=== PATIENT | male | born 1960 | race Caucasian/White ===

== ENCOUNTER 2016-09-21 14:32 | Emergency (ER) | payer OTHER ==
[2016-09-21] MEDS ORDERED: Bacitracin/Neomycin/Polymyxin B Oint 0.9 GM U/D Packet TOP ONE (14:46)
--- NOTE | 2016-09-21 14:46 | EDM.PDOC ---
ED HPI GENERAL MEDICAL PROBLEM - General Chief Complaint: Laceration Stated Complaint: head laceration Time Seen by Provider: 09/21/16 14:40 Source of Information: Reports: Patient, Old Records ([facility] EMR. No paper hospital chart available.) History Limitations: Reports: No Limitations - History of Present Illness INITIAL COMMENTS - FREE TEXT/NARRATIVE: Patient drove himself to the emergency room via private automobile for evaluation of a Worker's Compensation injury, which occurred at about 14:25 hours. He accidentally cut his head on a metal hydraulic line underneath a trailer with patient rating his discomfort as burning 3/10 pain. No history of foreign body, loss of consciousness, change in mental status, headaches, nausea , visual changes, neck/back pain, paresthesias, neurological deficits, or other complaints or injuries. He does not know when he last had a tetanus booster. Patient did apparently have nonspecific left-sided 3/10 chest pressure about one week ago lasting for about 10 minutes with the patient telling his about this episode. 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 The patient denies any heart flutter, dizziness, orthostasis, orthopnea, diaphoresis, paresthesias, recent decreased exercise tolerance, or any other anginal-type symptoms. No recent history of abdominal pain, heartburn, diarrhea, melena, gross hematochezia, or any food intolerance, including fatty foods, etc.. The patient also denies any recent fever, cough, wheezing, dyspnea, etc.. Onset: Today, Sudden Onset Date: 09/21/16 Onset Time: 14:25 Duration: Constant Location: Reports: Head. Denies: Face, Neck, Chest, Abdomen, Back, Pelvis, Upper Extremity, Left, Upper Extremity, Right, Lower Extremity, Left, Lower Extremity, Right Quality: Reports: Burning, Same as Previous Episode Severity: Mild Improves with: Reports: None Worsens with: Reports: None Context: Reports: Trauma (As above) Associated Symptoms: Denies: Confusion, Chest Pain, Cough, Diaphoresis, Fever/ Chills, Loss of Appetite, Malaise, Nausea/Vomiting, Seizure, Shortness of Breath , Syncope, Weakness Treatments PHYSICIAN RELATIONS SPECIALIST: Reports: Other (see below) (None) Left Head Pain Score (Numeric/FACES): 3 - Related Data Allergies Allergy/AdvReac Type Severity Reaction Status Date / Time No Known Allergies Allergy Verified 09/21/16 14:41 Home Meds: Home Meds . [No Known Home Meds] 09/21/16 [History] Past Medical History HEENT History: Reports: Impaired Vision, Otitis Media, Other (See Below). Denies: Allergic Rhinitis, Cataract, Glaucoma, Hard of Hearing, Macular Degeneration, Retinal Detachment Other HEENT History: Wears glasses, history of recurrent otitis media as a child Cardiovascular History: Reports: None, Other (See Below). Denies: Afib, Aneurysm, Arrhythmia, Blood Clots/VTE/DVT, CAD, Heart Failure, Heart Murmur, High Cholesterol, Hypertension, [place], Syncope Other Cardiovascular History: Patient does not know his cholesterol status Respiratory History: Reports: None. Denies: Asthma, COPD, Intubation, Previous , PE, Pneumothorax, Sleep Apnea, TB Gastrointestinal History: Reports: Chronic Diarrhea, GERD. Denies: Celiac Disease, Cholelithiasis, Chronic Constipation, Colon Polyp, Diverticulosis, Gastritis, GI Bleed, Hepatitis, Hiatal Hernia, Inflammatory Bowel Disease, Irritable Bowel Syndrome, Jaundice, Pancreatitis, PUD Genitourinary History: Reports: None. Denies: BPH, Chronic Renal Insuffiency, Renal Calculus, Retention, Urinary, STD, Urinary Incontinence, UTI, Recurrent Musculoskeletal History: Reports: Arthritis, Back Pain, Chronic, Neck Pain, Chronic, Osteoarthritis. Denies: Amputation, Fracture, Gout, RA, SLE Neurological History: Reports: Headaches, Chronic. Denies: Alzheimers Disease, Cerebral Aneurysms, Concussion, CVA, Head Trauma, Migraines, MS, Parkinson's, Seizure, TIA Psychiatric History: Reports: Anxiety, Depression, Other (See Below). Denies: Abuse, Victim of, ADD, ADHD, Addiction, Psych Hospitalization(s), Psychosis, PTSD, Suicide Attempt, Suicidal Ideation Other Psychiatric History: Anxiety depression disorder with no history of previous medical therapy or treatment Endocrine/Metabolic History: Reports: None. Denies: Diabetes, Type I, Diabetes , Type II, Hypothyroidism, IDDM Hematologic History: Reports: None. Denies: Anemia, Blood Transfusion(s), Iron Deficiency Immunologic History: Reports: None. Denies: AIDS, HIV, SLE Oncologic (Cancer) History: Reports: None. Denies: Basal Cell Carcinoma, Hodgkin's Lymphoma, Leukemia, Lymphoma, Malignant Melanoma, Non-Hodgkin's Lymphoma, Squamous Cell Carcinoma Dermatologic History: Reports: None. Denies: Eczema, Psoriasis - Infectious Disease History Infectious Disease History: Reports: Chicken Pox. Denies: C-Difficile, Measles , Meningitis, Mononucleosis, MRSA, Mumps, Pertussis (Whooping Cough), Rheumatic Fever, Rubella, Scarlet Fever, Shingles, TB, VRE - Past Surgical History Head Surgeries/Procedures: Reports: None HEENT Surgical History: Reports: Oral Surgery, Other (See Below). Denies: Adenoidectomy, Cataract Surgery, Eye Surgery, Laser Surgery, LASIK, Myringotomy w Tube(s), Naso-Sinus Surgery, Tonsillectomy Other HEENT Surgeries/Procedures: Teeth extraction, [place] teeth extraction x2 of the lower dentition at age 19 Cardiovascular Surgical History: Reports: None. Denies: Varicose, Vascular Surgery Respiratory Surgical History: Reports: None. Denies: Thoracentesis GI Surgical History: Denies: Appendectomy, Cholecystectomy, Colonoscopy, EGD, Hernia, Abdominal, Hernia, Inguinal, Hernia Repair/Other, Polypectomy Male Surgical History: Reports: Vasectomy, Other (See Below). Denies: Circumcision, TURP-Transurethral Resection of Prostate Other Male Surgeries/Procedures: vastectomy in September 1997 Endocrine Surgical History: Reports: None. Denies: Thyroid Biopsy Neurological Surgical History: Reports: None. Denies: C-Spine, Discectomy, Laminectomy, Lumbar Spine, Spinal Fusion, Vertebroplasty Musculoskeletal Surgical History: Reports: None. Denies: Carpal Tunnel, Ganglion Cyst, Joint Replacement, ORIF, Shoulder Surgery Oncologic Surgical History: Reports: None Dermatological Surgical History: Reports: None - Past Imaging History Past Imaging History: Reports: None. Denies: CAT Scan, Stress Testing Social & Family History - Tobacco Use Smoking Status *Q: Current Every Day Smoker Tobacco Use Within Last Twelve Months: Snuff/Dip Years of Tobacco use: 41 (Started at age 14 ) Packs/Tins Daily: 0.4 (One can every 3 days) Smoking Cessation Information Provided To Patient: Yes Second Hand Smoke Exposure: Yes Source of Second Hand Smoke Exposure: smokes Second Hand Smoke Education Provided: Yes - Caffeine Use Caffeine Use: Reports: Coffee (24 cups per day), Tea (1 glass 2 times per week) . Denies: Energy Drinks, Soda - Alcohol Use Alcohol Use History: Yes Days Per Week of Alcohol Use: 7 (No previous DWIs, problems with alcohol abuse, etc.) Number of Drinks Per Day: 6 (Usually beer) Total Drinks Per Week: 42 Alcohol Use in Last Twelve Months: Yes Alcohol Use Frequency: Daily - Recreational Drug Use Recreational Drug Use: No Drug Use in Last 12 Months: No Recreational Drug Type: Denies: Amphetamines (Speed), Cocaine, Heroin, Inhalants (Glues, Solvents, Aerosols), LSD (Acid), Marijuana/Hashish, Methamphetamine - Living Situation & Occupation Living situation: Reports: (1993, 3 children), with Family (, 2 children) Occupation: Employed (local delivery driver) ED ROS GENERAL - Review of Systems Review Of Systems: See Below Constitutional: Reports: No Symptoms. Denies: Fever, Chills, Weakness, Fatigue , Night Sweats, Diaphoresis HEENT: Reports: Glasses, Other (Head laceration). Denies: Dental Pain, Ear Pain , Eye Discharge, Eye Pain, Hearing Loss, Rhinitis, Throat Pain, Vertigo, Vision Change Respiratory: Reports: No Symptoms. Denies: Shortness of Breath, Pleuritic Chest Pain, Cough Cardiovascular: Reports: No Symptoms. Denies: Chest Pain, Blood Pressure Problem, Dyspnea on Exertion, Edema, Lightheadedness, Orthopnea, Palpitations, Syncope Endocrine: Reports: No Symptoms. Denies: Fatigue GI/Abdominal: Reports: No Symptoms. Denies: Abdominal Pain, Anorexia, Black Stool, Bloody Stool, Constipation, Diarrhea, Decreased Appetite, Distension, Hematochezia, Melena, Nausea, Stool Incontinence, Vomiting : Reports: No Symptoms. Denies: Discharge, Dysuria, Flank Pain, Frequency, Hematuria, Incontinence, Pain, Urgency, Urinary Retention Musculoskeletal: Reports: No Symptoms. Denies: Neck Pain, Shoulder Pain, Arm Pain, Back Pain, Leg Pain, Joint Pain Skin: Reports: Wound (As above). Denies: Diaphoresis Neurological: Reports: No Symptoms. Denies: Confusion, Dizziness, Headache, Numbness, Paresthesia, Seizure, Syncope, Tingling, Weakness Psychiatric: Reports: No Symptoms. Denies: Agitation, Anxiety, Confusion, Depression, Hallucinations Hematologic/Lymphatic: Reports: No Symptoms Immunologic: Reports: No Symptoms ED EXAM, SKIN/RASH Exam: See Below Exam Limited By: No Limitations General Appearance: Alert, WD/WN, No Apparent Distress, Anxious (Mild to moderate) Eye Exam: Bilateral Eye: Normal Fundi, Normal Inspection (No nystagmus), PERRL Ears: Normal External Exam, Normal Canal, Hearing Grossly Normal, Normal TMs Nose: Normal Inspection, Normal Mucosa, No Blood Throat/Mouth: Normal Inspection, Normal Lips, Normal Teeth (Occasional missing teeth), Normal Gums, Normal Oropharynx, Normal Voice, No Airway Compromise. No : Dysphagia, Inflammation Head: Normocephalic, Other (4 cm in length superficial laceration over the superior left occipital region with no foreign body, crepitation, deformity, or evidence of skull fracture). No: Facial Swelling, Facial Tenderness, Sinus Tenderness Neck: Normal Inspection, Supple, Non-Tender, Full Range of Motion. No: Lymphadenopathy (L), Lymphadenopathy (R), Thyromegaly Respiratory/Chest: No Respiratory Distress, Lungs Clear, Normal Breath Sounds, No Accessory Muscle Use, Chest Non-Tender. No: Pleural Rub, Retractions Cardiovascular: Normal Peripheral Pulses, Regular Rate, Rhythm, No Edema, No Gallop, No JVD, No Murmur, No Rub. No: Gallop/S3, Gallop/S4, Friction Rub Peripheral Pulses: 4+: Radial (L), Radial (R) GI/Abdominal: Normal Bowel Sounds, Soft, Non-Tender, No Organomegaly, No Distention, No Abnormal Bruit, No Mass, Pelvis Stable. No: Guarding (Male) Exam: Deferred Rectal (Males) Exam: Deferred Back Exam: Normal Inspection, Full Range of Motion. No: Muscle Spasm Extremities: Normal Inspection, Normal Range of Motion, Non-Tender, No Pedal Edema, Normal Capillary Refill Neurological: Alert, Oriented, CN II-XII Intact, Normal Cognition, Normal Gait, No Motor/Sensory Deficits Psychiatric: Anxious (Mild to moderate). No: Depressed Mood Skin: Warm, Dry, Normal Color, Wound/Incision (Head laceration as above). No: Diaphoretic, Ecchymosis, Pallor, Petechiae Location, Skin: Head Characteristics: Linear Associated features: Tenderness (Mild) Lymphatic: No Adenopathy ED SKIN PROCEDURES - Laceration/Wound Repair Left Upper Posterior Head Lac/wound length in cm: 4.0 Appearance: Superficial, Linear, Clean Distal NVT: neuro & vascular intact, no tendon injury Local anesthesia - Lidocaine (Xylocaine): 1% plain Local anesthetic volume: other (6 cc) Skin prep: providone-iodine (betadine) Saline irrigation (cc's): 0 Exploration/Debridement/Repair: wound explored, in a bloodless field, explored to base, no foreign material found Closed with: jermaine # of sutures: 8 Suture type: interrupted, simple Drain placement: No Sterile dressing applied: nurse Tetanus status addressed: Yes Complications: No Course - Vital Signs Last Recorded V/S: Last Vital Signs Temp 36.9 C 09/21/16 15:12 Pulse 84 09/21/16 15:12 Resp 18 09/21/16 15:12 BP 150/82 H 09/21/16 15:12 Pulse Ox 97 09/21/16 15:12 Vital Signs - 24 hr 09/21/16 15:12 Temperature [ 36.9 C Temporal] Pulse, 84 Peripheral [ Right Pulse Oximetry] Respiratory 18 Rate Blood Pressure 150/82 H [Left Upper Arm ] O2 Sat by Pulse 97 Oximetry - Orders/Labs/Meds Orders: Active Orders 24 hr Category Date Time Status Vaccines to be Administered [RC] PER UNIT ROUTINE Care 09/21/16 14:47 Active Obtain Past Medical Record [OM.PC] Routine Oth 09/21/16 14:46 Active Labs: None Meds: Medications Discontinued Medications Generic Name Dose Route Start Last Admin Trade Name Freq PRN Reason Stop Dose Admin Diphtheria/Tetanus/Acell Pertussis 0.5 ml 09/21/16 14:47 09/21/16 15:17 Adacel IM 09/21/16 14:48 0.5 ml .ONCE ONE Administration Lidocaine HCl 5 ml 09/21/16 14:46 09/21/16 14:51 Xylocaine-Mpf 1% INJECT 09/21/16 14:47 5 ml ONETIME ONE Administration Lidocaine HCl 5 ml 09/21/16 14:47 09/21/16 14:51 Xylocaine-Mpf 1% INJECT 09/21/16 14:48 5 ml ONETIME ONE Administration Neomycin/Polymyxin/Bacitracin 1 each 09/21/16 14:46 09/21/16 14:51 Triple Antibiotic Oint TOP 09/21/16 14:47 1 each ONETIME ONE Administration - Radiology Interpretation Free Text/Narrative:: None Departure - Departure Time of Disposition: 15:45 Disposition: Home, Self-Care 01 Condition: good Clinical Impression: Laceration, Tobacco abuse counseling, Peptic reflux disease, Mixed anxiety depressive disorder Chest pain Qualifiers: Chest pain type: unspecified Qualified Code(s): R07.9 - Chest pain, unspecified - Discharge Information Instructions: Laceration Care, Adult, [id number], Head Injury, Adult, Easy-to -Read Referrals: Eugene Vazquez PA-C [Primary Care Provider] - Forms: ED Department Discharge Additional Instructions: 1. Follow up with your regular provider in 10-14 days as needed, if symptoms persist. 2. Tylenol 650 mg by mouth every 4 hours and/or OTC ibuprofen 2-3 tabs by mouth every 6 hours with food as directed./needed. 3. Antibacterial soap wash/soak with subsequent antibacterial dressing such as Neosporin, etc. as directed 2 times per day until the wound or laceration site completely heals. Keep the area clean and dry with activity restrictions as discussed. 4. Stop all tobacco use ADRIANNA as directed/per provided information and consider contacting Quit [employer]ne, etc.. 5. Head precautions as directed-see form. 6. Continue to observe your blood pressure closely through your regular provider 7. Discuss with your regular provider ADRIANNA your recent episode of chest pain with consideration of cardiac workup and screening colonoscopy thereafter with possible additional EGD once your cardiac status has been determined - Problem List & Annotations (1) Laceration SNOMED Code(s): 538172550 Code(s): GLP4956 - Status: Acute Priority: High Onset Date: 09/21/16 Annotation/Comment:: Excellent results with laceration repair as above. DTaP given. Wound care and activity restrictions discussed. The patient does not wish to have a work excuse and wants to go back to work today. Workmen's Compensation forms were completed (2) Tobacco abuse counseling SNOMED Code(s): 508986461, 707051300, 777712914 Code(s): Z71.6 - TOBACCO ABUSE COUNSELING Status: Chronic Priority: Medium Annotation/Comment:: Tobacco cessation strongly encouraged with information provided, and the patient counseled on the use of Nicorette gum (3) Chest pain SNOMED Code(s): 82755308 Code(s): R07.9 - CHEST PAIN, UNSPECIFIED Status: Acute Priority: High Annotation/Comment:: Nonspecific chest pain about one week ago with multiple cardiac risk factors, including male sex, tobacco abuse, etc. He does not know his cholesterol status. The patient was strongly advised to contact his regular provider ADRIANNA for possible cardiac workup. He is nonsymptomatic at this time. Qualifiers: Chest pain type: unspecified Qualified Code(s): R07.9 - Chest pain, unspecified (4) Peptic reflux disease SNOMED Code(s): 98789100 Code(s): K21.9 - GASTRO-ESOPHAGEAL REFLUX DISEASE WITHOUT ESOPHAGITIS Status: Chronic Priority: Medium Annotation/Comment:: Stable by patient history (5) Mixed anxiety depressive disorder SNOMED Code(s): 818599494 Code(s): F41.8 - OTHER SPECIFIED ANXIETY DISORDERS Status: Chronic Priority: Medium Annotation/Comment:: Some moderate anxiety today with laceration repair. Continue to observe his blood pressures closely by his regular providers. No medical therapy for his anxiety and depression at this time however continue to observe closely by his regular providers - Problem List Review Problem List Initiated/Reviewed/Updated: Yes - My Orders Last 24 Hours: My Active Orders 09/21/16 14:46 Obtain Past Medical Record [OM.PC] Routine 09/21/16 14:47 Vaccines to be Administered [RC] PER UNIT ROUTINE - Assessment/Plan Last 24 Hours: My Active Orders 09/21/16 14:46 Obtain Past Medical Record [OM.PC] Routine 09/21/16 14:47 Vaccines to be Administered [RC] PER UNIT ROUTINE Assessment:: As above Plan: As above. Extensive precautions were given to the patient, who is in agreement with the treatment plan. See Patient Instructions for further treatment and plan.
[2016-09-21] MEDS ORDERED: Diphtheria,Pertussis(Acell),Tetanus Vaccine 0.5 ML SDV IM ONE (14:47)
[2016-09-21 15:14] VITALS: BP 150/82
== END 2016-09-21 15:45 | disposition home or self-care (01) ==
LOC: LL.ED 14:32
DX: S01.01XA Laceration without foreign body of scalp, initial encounter (principal); R07.9 Chest pain, unspecified; K21.9 Gastro-esophageal reflux disease without esophagitis; F41.8 Other specified anxiety disorders; M19.90 Unspecified osteoarthritis, unspecified site; F17.210 Nicotine dependence, cigarettes, uncomplicated; Z23 Encounter for immunization; Z71.6 Tobacco abuse counseling; Z98.52 Vasectomy status; Z98.890 Other specified postprocedural states; W31.89XA Contact with other specified machinery, initial encounter
CPT/HCPCS: 12002; 90471; 90715; 99283